=== PATIENT | male | born 1995 ===

== ENCOUNTER → 2017-01-30 | Outpatient (CLI) | payer OTHER ==
--- NOTE | 2017-01-31 18:02 | CPEEG ---
[f rep st] ELECTROENCEPHALOGRAM [id number] AMBULATORY ELECTROENCEPHALOGRAM. DATES OF STUDY: From January 30, 2017, to January 31, 2017. INTERPRETATION: This 24-hour ambulatory EEG recording is normal. There were no potentially epileptogenic abnormalities present during the awake or sleep recordings. There patient diary submitted with this study did not report any events. REPORT: This 24-hour ambulatory EEG recording was performed from January 30 to January 31, 2017. The background activity contained 9 Hz alpha activity to the posterior head regions. The background activity was normal and symmetric. There was no abnormal activation at rest. The patient became drowsy and fell into sustained sleep during the 24-hour ambulatory EEG recording. There was no abnormal activation during drowsiness, sleep, or during times of arousal. There patient diary submitted with this study did not report any events. /[id number]/MODL MTDD
== END ==
LOC: FCPNEURO 14:21
PROVIDERS: ATTEND Family Medicine
DX: R55 Syncope and collapse (principal)